=== PATIENT | female | born 1985 | race Caucasian/White ===

== ENCOUNTER 2017-05-25 09:43 | Emergency (ER) | payer OTHER ==
[~2017-05-25] VITALS: Ht 149.9 cm; Wt 76.2 kg
[2017-05-25 09:50] VITALS: BP 127/84
--- NOTE | 2017-05-25 11:07 | ED GI/GU/ABDOMINAL COMPLAINT ---
History of Present Illness General Chief Complaint: General Adult Stated Complaint: FEVER/REHMAN RECENT . Source: patient, old records Exam Limitations: no limitations Vital Signs & Intake/Output Vital Signs & Intake/Output Vital Signs Date Time Temp Pulse Resp B/P B/P Pulse O2 O2 Flow FiO2 Mean Ox Delivery Rate 05/25 1135 98 Room Air 05/25 0950 99.2 117 16 127/84 99 Room Air Allergies Coded Allergies: cefaclor (From CECLOR) (Intermediate, HIVES 05/25/17) Reconcile Medications Cephalexin (Keflex) 500 MG CAPSULE 1 CAP PO TID mastitis Triage Note: PT TO ED FOR FEVER AND HEADACHE SINCE THIS AM, RECENT C SECTION ON 05/14 AT [facility]. Triage Nurses Notes Reviewed? yes ? n Is pt currently ? Yes Onset: Abrupt Duration: day(s): (1), constant Timing: recent history Severity Numbers: 3 Location: right breast Radiation: no radiation No Modifying Factors: none Associated Symptoms: denies HPI: 31 year old female s/p 05/14 at [facility] presents for eval with c/o fever sicne this morning a/w redness and sorenes to her right breast. pt has history of mastitis and states this feels similar. she denies any complications with c section scar- redness, discharge. she was on iv abx s/p prophylactially. no cough, cp, n/v/d. no modifying factors or assocaited sx otherwise. no urinary urgency, frequency, dysuria, hematuria. no vaginal bleeding no left breast pain. (Chacho De Souza) Past History Travel History Traveled to [place] past 21 day No Medical History Any Pertinent Medical History? see below for history Surgical History Surgical History: Psychosocial History Tobacco Use: Never used Family History Hx Contributory? No (Chacho De Souza) Review of Systems Review of Systems Constitutional: Reports: see HPI. Comments Review of systems: See HPI, All other systems negative. Constitutional, fever, no malaise HEENT: no sore throat no congestion, no ear pain Cardiovascular: No chest pain , no palpitation Skin: see hpi Respiratory: No dyspnea no cough no sputum GI: No nausea no vomiting, no diarrhea, no bloating/constipation : No dysuria No hematuria, no frequency Muscle skeletal: No joint pain, no back pain, no neck pain, Neurologic: , no headache Heme/endocrine: No bruising Immunology: No lymphadenopathy (Chacho De Souza) Physical Exam Physical Exam General Appearance: well developed/nourished, no apparent distress Gastrointestinal: normal bowel sounds, soft, non-tender Comments: Well-developed well-nourished person in no acute distress HEENT: Normal EENT exam; PERRL, EOMI, HEAD is atraumatic. moist mucous membranes. Neck: Supple, normal range of motion Back: no CVA tenderness. Full range of motion chest: slight erythema noted tot he medial lower right breast, no fluctuance, no discharge Cardiovascular: Regular rate and rhythms no murmur Respiratory: No respiratory distress. Patient speaking in full complete sentences. Breath sounds clear to auscultation bilaterally: NO W/R/R Abdomen: Soft, nontender nondistended, no appreciable organomegaly. Normal bowel sounds. No rebound/guarding, scar is c/d/i, no overlying erythema, dehiscence, discharge, induration or flucutance Extremity: No edema, full range of motion of extremities Neuro: Alert oriented x3, motor sensory normal,There were no obvious focal neurologic abnormalities. Skin: No appreciable rash on exposed skin, skin is warm and dry. Psych: Mood and affect is normal, memory and judgment is normal. Core Measures ACS in differential dx? No Sepsis Present: No Sepsis Focused Exam Completed? No (Chacho De Souza) Progress Differential Diagnosis: endometritis, UTI/pyelo, mastitis, influenza, viral syndrome, pna, bronchitis Plan of Care: Orders Procedure Date/time Status Add-on Test (ER Only) 05/25 1051 Active CULTURE,URINE 05/25 1024 Active URINALYSIS 05/25 1024 Complete RAPID VIRAL INFLUENZA A 05/25 0949 Complete Laboratory Tests 05/25/17 1026: Urine Color STRAW, Urine Clarity HAZY H, Urine pH 6.0, Ur Specific [place] <= 1.005, Urine Protein NEG, Urine Ketones NEG, Urine Nitrite NEG, Urine Bilirubin NEG, Urine Urobilinogen 0.2, Ur Leukocyte Esterase LARGE H, Ur Microscopic SEDIMENT EXAMINED, Urine RBC 10-15 H, Urine WBC 50-75 H, Ur Epithelial Cells FEW, Urine Bacteria FEW H, Urine Hemoglobin LARGE H, Urine Glucose NEG Microbiology 05/25 1024 URINE ROUT: Urine Culture - RECD 05/25 4759 NASOPHARYN: Influenza Virus A & B Rapid Smear - COMP case and labs d/w dr pandey, we will treat with keflex as hitesh has been on this in the past for mastitits during last . she has no other ocmplaints, afebirle, nontoxic appearing. advised to pump and dump from right breast, with left side. return precautiosn discussed at length, urine sent for culture. they feel comfortable with plan cleared for dc Initial ED EKG: none (Chacho De Souza) Departure Departure Time of Disposition: 1130 Disposition: HOME OR SELF CARE Condition: Stable Clinical Impression Primary Impression: Mastitis Referrals: Mago BATEMAN,Roya (PCP/Family) Additional Instructions: Follow-up with your primary care physician on Saturday. Warm compresses pump and dump from the right breast. Keflex as discussed interchange Tylenol Motrin every 4-6 hours drink plenty of fluids return if you notice worsening pain redness persistent fevers despite medication or any other concerns. Departure Forms: Customer Survey General Discharge Information Prescriptions: Current Visit Scripts Cephalexin (Keflex) 1 CAP PO TID #21 CAP (Chacho De Souza) PA/BULK MAIL TECHNICIAN Co-Sign Statement Statement: ED Attending supervision documentation- [] I saw and evaluated the patient. I have also reviewed all the pertinent lab results and diagnostic results. I agree with the findings and the plan of care as documented in the PA's/BULK MAIL TECHNICIAN's documentation. [x] I have reviewed the ED Record and agree with the PA's/BULK MAIL TECHNICIAN's documentation. [] Additions or exceptions (if any) to the PAs/BULK MAIL TECHNICIAN's note and plan are summarized below: [] (Christian Pandey DO
[2017-05-25] MEDS ORDERED: KEFLEX500 M1 PO (11:31)
== END 2017-05-25 12:07 ==
LOC: ERH 09:43
DX: N61.0 Mastitis without abscess (principal)
CPT/HCPCS: 81001; 87086; 87804; 87804-59